=== PATIENT | male | born 1960 | race Caucasian/White ===

== ENCOUNTER 2017-08-26 01:59 | Emergency (ER) | payer OTHER ==
[2017-08-26] MEDS ORDERED: KETOROLAC 60 MG/2 ML VIAL IM STA (02:41)
[2017-08-26] MEDS ORDERED: ORPHENADRINE 30 MG/ML 2 ML VIAL IM STA (02:41)
[2017-08-26] MEDS ORDERED: methylPREDNISolone SOD SUCCI 125 MG/2 ML VIAL IM STA (02:41)
--- NOTE | 2017-08-26 02:56 | ED ---
General Adult HPI - General Chief complaint: Extremity Problem,Nontraumatic Stated complaint: Leg pain Time Seen by Provider: 08/26/17 02:29 Source: patient, RN notes reviewed Mode of arrival: ambulatory Limitations: no limitations - History of Present Illness Initial comments: 57 yo male presents to the ER With cc of left sided leg pain and low back pain. Patient states her last day or so he gets this pain that starts in the left lower back and she said left leg if he bends or twists a certain way. He denies any falls traumas or injuries to the back. He denies any loss by bladder function or any saddle anesthesia. Patient states at work he was sometimes flareup so he thought that he should be seen. There has been no nausea or vomiting with this. He denies any other symptoms at this time. Patient denies any recent fever, chills, shortness of breath, chest pain, abdominal pain, nausea vomiting, numbness or tingling, dysuria or hematuria, constipation or diarrhea, headaches or visual changes, or any other current symptoms. - Related Data Home Medications Medication Instructions Recorded Confirmed Omeprazole Magnesium [Prilosec OTC] 20 mg PO DAILY 08/26/17 08/26/17 Previous Rx's Medication Instructions Recorded Orphenadrine [Norflex] 100 mg PO Q12H #10 tablet.er 08/26/17 predniSONE 50 mg PO DAILY #5 tab 08/26/17 Allergies Allergy/AdvReac Type Severity Reaction Status Date / Time No Known Allergies Allergy Verified 08/26/17 02:24 Review of Systems ROS Statement: Those systems with pertinent positive or pertinent negative responses have been documented in the HPI. ROS Other: All systems not noted in ROS Statement are negative. Past Medical History Past Medical History: GERD/Reflux History of Any Multi-Drug Resistant Organisms: None Reported Past Surgical History: Appendectomy Past Psychological History: No Psychological Hx Reported Smoking Status: Never smoker Past Alcohol Use History: Rare Past Drug Use History: None Reported General Exam Limitations: no limitations General appearance: alert, in no apparent distress Eye exam: Present: normal appearance, PERRL, EOMI. Absent: scleral icterus, conjunctival injection, periorbital swelling ENT exam: Present: normal exam, mucous membranes moist Neck exam: Present: normal inspection. Absent: tenderness, meningismus, lymphadenopathy Respiratory exam: Present: normal lung sounds bilaterally. Absent: respiratory distress, wheezes, rales, rhonchi, stridor Cardiovascular Exam: Present: regular rate, normal rhythm, normal heart sounds. Absent: systolic murmur, diastolic murmur, rubs, gallop, clicks Back exam: Present: normal inspection, full ROM, other (Positive straight leg raise to the left). Absent: tenderness, paraspinal tenderness, rash noted Neurological exam: Present: alert, oriented X3, CN II-XII intact Psychiatric exam: Present: normal affect, normal mood Skin exam: Present: warm, dry, intact, normal color. Absent: rash Course Vital Signs 08/26/17 02:21 Temperature 98.7 F Pulse Rate 94 Respiratory 18 Rate Blood Pressure 159/102 O2 Sat by Pulse 99 Oximetry Medical Decision Making - Medical Decision Making 57-year-old male presents emergency department with what appears the left sided sciatica. X-ray was reviewed. We will start patient steroids muscle relaxers for home. We did discuss return parameters and follow-up. The patient stated that he understood and all questions have been answered. At this time the patient will be discharged. - Radiology Data Radiology results: report reviewed, image reviewed Disposition Clinical Impression: Sciatica, left side Disposition: HOME SELF-CARE Condition: Stable Instructions: Sciatica (ED) Additional Instructions: Please use medication as discussed. Please follow up with family doctor if symptoms have not improved over the next two days. Please return to the emergency room if your symptoms increase or worsen or for any other concerns. Prescriptions: Orphenadrine [Norflex] 100 mg PO Q12H #10 tablet.er predniSONE 50 mg PO DAILY #5 tab Referrals: Dorcas Lawrence MD [REFERRING] - 1-2 days Time of Disposition: 03:01
--- NOTE | 2017-08-26 02:57 | XR ---
EXAMINATION TYPE: XR lumbar spine 2 or 3V DATE OF EXAM: 08/26/2017 COMPARISON: NONE HISTORY: Back pain TECHNIQUE: 3 views FINDINGS: Vertebra have fairly normal spacing and alignment. There is mild spurring of the endplates. There is no compression fracture. Posterior elements are intact. Sacroiliac joints appear intact. Sp inal canal appears small. There is developmentally short pedicles and narrowed interpediculate distan ce. IMPRESSION: No fracture. 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 Spondylotic changes.
[2017-08-26 03:31] VITALS: BP 147/95; PULSE 87; RESP 16; TEMP 97.5
== END 2017-08-26 03:31 | disposition home or self-care (01) ==
LOC: EC 01:59
DX: M54.42 Lumbago with sciatica, left side (principal); K21.9 Gastro-esophageal reflux disease without esophagitis; Z79.899 Other long term (current) drug therapy
CPT/HCPCS: 72100; 99283; 96372 ×3; J2360; J2930; J1885

== ENCOUNTER 2021-02-03 08:39 | Emergency (ER) | payer OTHER ==
[2021-02-03 08:57] VITALS: BP 138/81; PULSE 79; RESP 18; TEMP 97.9
[2021-02-03] MEDS ORDERED: PROPARACAINE 0.5% OPHTH DROPS 15 ML BTL LEFT EYE STA (09:06)
[2021-02-03] MEDS ORDERED: FLUORESCEIN STRIPS 1 MG STRIP BOTH EYES ONE (09:06)
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
== END 2021-02-03 09:53 | disposition home or self-care (01) ==
LOC: EC 08:39
DX: S05.02XA Injury of conjunctiva and corneal abrasion without foreign body, left eye, initial encounter (principal); K21.9 Gastro-esophageal reflux disease without esophagitis; W50.0XXA Accidental hit or strike by another person, initial encounter; Z90.49 Acquired absence of other specified parts of digestive tract
CPT/HCPCS: 99283

== ENCOUNTER 2024-11-18 07:10 | Day surgery (SDC) | payer OTHER ==
[~2024-11-18 07:10] MED LIST: LIDOCAINE 1% (10MG/ML) FOR IV START INTRADERMA PRN
[2024-11-18 07:36] VITALS: RESP 16
[2024-11-18] MEDS: IV FLUID CONTINUATION 1,000 ML IV ONE ×2 (08:04→10:59)
[2024-11-18] MEDS: LACTATED RINGERS 1,000 ML IV SCH (08:05)
[2024-11-18] MEDS: ACETAMINOPHEN TAB 500 MG TAB PO PRN (08:12)
[2024-11-18] MEDS: ONDANSETRON 4 MG/2 ML VIAL IVP ONE (08:12)
[2024-11-18] MEDS: DEXAMETHASONE SOD PHOSPHATE 4 MG/ML 1 ML VIAL IV ONE (08:13)
[2024-11-18] MEDS: MIDAZOLAM 2 MG/2 ML VIAL IV ONE (08:22)
[2024-11-18] MEDS: HEPARIN SODIUM,PORCINE 5,000 UNIT/ML 1 ML VIAL SQ PRN (08:47)
--- NOTE | 2024-11-18 08:52 | P.ANPRN ---
Procedure Note - Anesthesia - Nerve Block Performed Bilateral Erector Spinae Single Date of Procedure: 11/18/24 Procedure Start Time: : Procedure Stop Time: : Location of Patient: PreOp Indication: Acute Post-Operative Pain, Analgesia, Requested by Surgeon Sedation Type: Sedate with meaningful contact maintained Preparation: Sterile Prep Position: Prone Catheter: None Needle Types: Pajunk Needle Gauge: 21 Ultrasound used to visualize needle placement: Yes Ultrasound used to observe medication spread: Yes Injectate: 0.5% Ropivacaine (see comment for volume) (Ropiv 20ml+[id number], Nwwdle level T9----Each side (Resident)) Blood Aspirated: No Pain Paresthesia on Injection Noted: No Resistance on Injection: Normal Image Stored and Saved: Yes Events: Uneventful and Well Tolerated
[2024-11-18] MEDS ORDERED: ROPIVACAINE 5 MG/ML 30 ML VIAL ONE (09:33)
[2024-11-18] MEDS ORDERED: fentaNYL (PF) 50 MCG/ML 2 ML AMP ONE (09:33)
[2024-11-18] MEDS ORDERED: NEOSTIGMINE 1 MG/ML 10 ML VIAL ONE (09:33)
[2024-11-18] MEDS ORDERED: LIDOCAINE 1% INJ 10MG/ML (20 ML MDV) ONE (09:33)
[2024-11-18] MEDS ORDERED: PROPOFOL 10 MG/ML 20 ML VIAL IV ONE (09:33)
[2024-11-18] MEDS ORDERED: MIDAZOLAM 2 MG/2 ML VIAL ONE (09:33)
[2024-11-18] MEDS ORDERED: ePHEDrine 50 MG/ML 1 ML VIAL ONE (09:33)
[2024-11-18] MEDS ORDERED: ROCURONIUM 10 MG/ML (5 ML VIAL) IV ONE (09:33)
[2024-11-18] MEDS ORDERED: DEXAMETHASONE SOD PHOSPHATE 4 MG/ML 1 ML VIAL ONE (09:33)
[2024-11-18] MEDS ORDERED: GLYCOPYRROLATE 0.2 MG/ML 2 ML VIAL ONE (09:33)
[2024-11-18] MEDS ORDERED: SUCCINYLCHOLINE CHLORIDE 200 MG/10 ML VIAL IV ONE (09:33)
[2024-11-18] MEDS: BUPIVACAINE (PF) 0.25% 30 ML VIAL SQ ONE (09:59)
--- NOTE | 2024-11-18 11:03 | P.OP ---
Date of Procedure: 11/18/24 Procedure(s) Performed: PREOPERATIVE DIAGNOSIS: Incarcerated recurrent ventral hernia POSTOPERATIVE DIAGNOSIS: Same PROCEDURE: Open repair incarcerated recurrent ventral hernia with mesh, partial omentectomy SURGEON: Dr. Marcelino ANESTHESIA: General EBL: 25 cc OPERATIVE PROCEDURE DETAILS: Patient placed on the operating table in the supine position. Abdomen was prepped and draped in usual sterile fashion. The previous incision was re-incised and extended slightly inferiorly to the right side of the umbilicus. Dissection through the subcutaneous tissues took place using electrocautery. A moderate-sized hernia was identified. The hernia sac was carefully dissected down to the level of the fascia where it was excised along with a portion of the omentum. Ligation of the omentum took place using 3-0 silk ties. The patient had a total of 3 fascial openings with the largest measuring about 3.1 cm in diameter. The 2 smaller ones were inferiorly each measuring less than 1 cm. These were all incorporated into one larger fascial defect which measured approximately 4 x 2 cm. The 8 cm cm Ventralex mesh was placed beneath the fascia and sutured to the fascia using trans-fascial 0 Ethibond sutures. Following that the fascial defect was closed horizontally using vest over pants interrupted mattress sutures with 0 Ethibond sutures. The subcutaneous tissues were closed using 3-0 Vicryl sutures. The skin was closed using francisco j. Sterile dressings were applied. HERNIA CHARACTERISTICS: Length: 2 cm Width: 4 cm Type: Incarcerated recurrent incisional TYPE OF MESH USED: 8 cm Ventralex LOCATION OF MESH: Sublay intraperitoneal FIXATION: 0 Ethibond PREOPERATIVE DISCUSSION ON SMOKING CESSASTION: Yes PREOPERATIVE DISCUSSION ON MORBID OBESITY: Yes PREOPERATIVE DISCUSSION ON APPROPRIATE USE OF NARCOTIC USE: Yes PREOPERATIVE EDUCATION: Multi Modal, Smoking Cessation and Weight Loss with BMI over 35. DISPOSITION: Stable to recovery room
[2024-11-18 11:10] VITALS: TEMP 97.1
[2024-11-18] MEDS: HYDROmorphone 0.5 MG/0.5 ML SYRINGE IVP PRN (11:32)
[2024-11-18] MEDS ORDERED: ACETAMINOPHEN TAB 325 MG TAB PO SCH (12:00)
[2024-11-18 12:51] VITALS: BP 138/87; PULSE 91
[2024-11-18] MEDS ORDERED: IBUPROFEN 600 MG TAB PO SCH (14:00)
== END 2024-11-18 13:13 | disposition home or self-care (01) ==
LOC: OR 07:10
PROVIDERS: ATTEND Surgery
DX: K43.0 Incisional hernia with obstruction, without gangrene (principal); K21.9 Gastro-esophageal reflux disease without esophagitis
CPT/HCPCS: 64999; 49614; C1781; J2250; J0330; J1644; J1100; J2710; J0690; J2405; J2003; J3010; J2795; J2704; J1171; J0665; J1596; 88302